=== PATIENT | male | born 1960 | race African-American/Black ===

== ENCOUNTER 2020-06-13 17:40 | Emergency (ER) | payer SELFPAY ==
[~2020-06-13] VITALS: Ht 172.7 cm; Wt 82.0 kg
[2020-06-13 17:44] VITALS: BP 106/80
[2020-06-13] MEDS ORDERED: SODIUM CHLORIDE 0.9% 1000ML BAG (SEPSIS BOLUS) IV ONE (18:30)
[2020-06-13] MEDS ORDERED: ONDANSETRON 4MG ODT PO ONE (18:30)
== END 2020-06-13 19:00 | disposition left against medical advice (07) ==
LOC: ER 17:40
DX: B34.9 Viral infection, unspecified (principal)
CPT/HCPCS: 71045; 93005; 99283; J7030